=== PATIENT | female | born 1995 | race African-American/Black ===

== ENCOUNTER 2017-02-15 21:43 | Emergency (ER) | payer OTHER ==
[2017-02-15 22:02] VITALS: BMI 39.4
[2017-02-15] MEDS ORDERED: METOCLOPRAMIDE HCL INJECTION 10 MG/2 ML VIAL IVPB ONE (23:24)
[2017-02-15] MEDS ORDERED: SODIUM CHLORIDE 1,000 ML IV ONE (23:24)
[2017-02-15] MEDS ORDERED: ACETAMINOPHEN 1000 MG/100 ML VIAL (NON FORMULARY) IVPB ONE (23:37)
[2017-02-15 23:41] LABS: URINE APPEARANCE CLEAR; URINE BILIRUBIN NEGATIVE (NEGATIVE); URINE BLOOD NEGATIVE (NEGATIVE); URINE COLOR STRAW; URINE GLUCOSE (UA) NEGATIVE (NEGATIVE); URINE KETONE TRACE (NEGATIVE); URINE LEUK ESTERASE NEGATIVE (NEGATIVE); URINE NITRITE NEGATIVE (NEGATIVE); URINE PROTEIN NEGATIVE (NEGATIVE); URINE UROBILINOGEN NEGATIVE mg/dL (0.2-1.0)
[2017-02-15] MEDS ORDERED: METOCLOPRAMIDE HCL INJECTION 10 MG/2 ML VIAL ONE (23:43)
[2017-02-15] MEDS ORDERED: ACETAMINOPHEN INJECTION 100 ML IVPB ONE (23:43)
[2017-02-15 23:51] LABS: BASOPHIL 0.5 % (0-2.0); EOSINOPHIL 7.2 % (0-4.5); MCH 24.9 pg (25.7-33.7); MCHC 33.1 g/dl (32.0-36.0); MEAN CELL VOLUME 75.4 fl (80-96); MEAN PLT VOLUME 7.8 fl (7.5-11.1); NEUTROPHILS 56.8 % (42.8-82.8); PLATELET COUNT 260 K/MM3 (134-434); RDW 13.8 % (11.6-15.6); WHITE BLOOD COUNT 7.8 K/mm3 (4.0-10.0)
--- NOTE | 2017-02-16 00:09 | PDOC ---
History of Present Illness - General History Source: Patient Exam Limitations: No Limitations - History of Present Illness Initial Comments: 02/16/17 00:23 The patient is a 21 year old 20 week female , with no significant past medical history, who presents to the emergency room complaining of of 1 day of a headache and 3 weeks of nasal congestion. When the headache started this morning, the pain was intermittent and was mostly frontal pressure.The headache has progressively worsened becoming a constant frontal headache with intermittent sharp pain to the left side of her head. The headache is exacerbated by bright light. She has had frontal headaches before and states that they have worsened since her . The headache today is 10x worse than any headache she has experienced before. She notes that she was admitted to [facility] on 01/20/17, about 3 weeks ago, for bronchitis. She took a 4 day prescription of Azithromycin and her cough resolved, however the nasal congestion has persisted. Denies ear pain. Denies cough, chest pain, SOB. Denies fever, chills, nausea, vomiting. Denies recent head trauma. Allergies: penicillin, ibuprofen PCP: Dr. Andreea JULIO: Dr. Worrell [[facility] ] <Lucita Early - Last Filed: 02/16/17 01:58> <Pa Lewis - Last Filed: 02/16/17 02:02> - General Chief Complaint: Headache Stated Complaint: HEADACHE Time Seen by Provider: 02/15/17 22:19 Past History <Lucita Early - Last Filed: 02/16/17 01:58> - Past Medical History Anemia: Yes - Reproductive History (#): 1 Para: 0 Cervical CA: No Dysfunctional Uterine Bleeding: No Ectopic : No Endometrial CA: No Polycystic Ovaries: No Therapeutic (s) & number: No Tubal Ligation: No Spontaneous : 0 - Immunization History Immunization Up to Date: Yes - Psycho/Social/Smoking Cessation Hx Anxiety: No Suicidal Ideation: No Smoking History: Never smoked Have you smoked in the past 12 months: No Information on smoking cessation initiated: No Hx Alcohol Use: No Drug/Substance Use Hx: No Substance Use Type: None <Pa Lewis - Last Filed: 02/16/17 02:02> - Past Medical History Allergies/Adverse Reactions: Allergies Allergy/AdvReac Type Severity Reaction Status Date / Time ibuprofen Allergy Verified 02/15/17 22:00 Penicillins Allergy Verified 02/15/17 22:00 Home Medications: Ambulatory Orders Azithromycin [Zithromax 250mg Tablets -] 250 mg PO UTDICT #6 tab 02/16/17 Review of Systems - Review of Systems Constitutional: No: Chills, Fever HEENTM: Yes: Nose Congestion. No: Blurred Vision, Double Vision, Ear Pain, Nose Bleeding, Throat Swelling, Difficulty Swallowing Respiratory: No: Cough, Shortness of Breath Cardiac (ROS): No: Chest Pain, Lightheadedness ABD/GI: No: Diarrhea, Nausea, Vomiting Neurological: Yes: Headache. No: Weakness, Ataxia All Other Systems: Reviewed and Negative <Pa Lewis - Last Filed: 02/16/17 02:02> *Physical Exam - Vital Signs Last Vital Signs Temp Pulse Resp BP Pulse Ox 98.1 F 85 18 132/71 100 02/15/17 22:00 02/15/17 22:00 02/15/17 22:00 02/15/17 22:00 02/15/17 22:00 - Physical Exam Comments: 02/16/17 00:23 GENERAL: The patient is awake, alert, and fully oriented, in no acute distress. HEAD: +Minimal frontal tenderness with no overlying erythema. No mastoid tenderness. No erythema over the mastoid. No signs of trauma. EYES: Pupils equal, round and reactive to light, extraocular movements intact, sclera anicteric, conjunctiva clear. EARS: Tympanic membranes are clear with good light reflex and no fluid. NECK: The neck is supple. No lymphadenopathy. PSYCH: Normal mood, normal affect. SKIN: Warm, Dry, normal turgor, no rashes or lesions noted. NEURO: Mental status: The patient is alert and oriented x3. Cranial nerves: Cranial nerves II through XII are intact Motor: The upper extremities are 5 over 5 in all muscle groups. The lower extremities are 5 over 5 in all muscle groups. No pronator drift. Sensation: Sensation is intact to light touch throughout. Cerebellar: [id number] is normal in both upper extremities. Heel-knee- sánchez is normal in both lower extremities. Reflexes: 2+ and symmetric in the upper and lower extremities. Gait: Normal. Heel and toe walking are normal. Tandem gait is normal. <Lucita Early - Last Filed: 02/16/17 01:58> - Vital Signs Last Vital Signs Temp Pulse Resp BP Pulse Ox 98.1 F 85 18 132/71 100 02/15/17 22:00 02/15/17 22:00 02/15/17 22:00 02/15/17 22:00 02/15/17 22:00 <JoshuaPa - Last Filed: 02/16/17 02:02> ED Treatment Course - LABORATORY CBC & Chemistry Diagram: 02/15/17 23:41 02/15/17 23:41 - ADDITIONAL ORDERS Additional order review: Laboratory Results 02/15/17 02/15/17 23:41 23:34 Sodium 139 Potassium 3.6 Chloride 107 Carbon Dioxide 21 Anion Gap 11 BUN 5 L Creatinine 0.4 L Creat Clearance w eGFR > 60 Random Glucose 74 Calcium 8.5 Total Bilirubin 0.3 AST 19 ALT 25 Alkaline Phosphatase 48 Total Protein 6.8 Albumin 3.3 L Urine Color Straw Urine Appearance Clear Urine pH 6.0 Urine Protein Negative Urine Glucose (UA) Negative Urine Ketones Trace H Urine Blood Negative Urine Nitrite Negative Urine Bilirubin Negative Urine Urobilinogen Negative 02/15/17 23:41 RBC 4.36 MCV 75.4 L MCHC 33.1 RDW 13.8 D MPV 7.8 Neutrophils % 56.8 D Lymphocytes % 29.4 D Monocytes % 6.1 Eosinophils % 7.2 H D Basophils % 0.5 - RADIOLOGY Radiograph Interpretation: 02/16/17 01:58 EXAM: Ultrasound obstetric IMAGES: 40 INDICATION: well being DATE OF SERVICE: 2017-02-16 01:27:55 COMPARISON: none FINDINGS: Live IUP in breech position with estimated age 20 weeks and 5 days. Cervix is closed and measures 3.8 cm in length. There is an anterior placenta which is low lying but does not cover the internal os, consistent with a marginal previa. No evidence of abruption. Normal heart rate of 142 beats per minute. There is a amount of amniotic fluid for age. IMPRESSION: Breech position. Marginal placenta previa. - Medications Given in the ED: ED Medications Discontinued Medications Generic Name Dose Route Start Last Admin Trade Name Freq PRN Reason Stop Dose Admin Acetaminophen 1,000 mg 02/15/17 23:37 02/15/17 23:50 Ofirmev Injection - IVPB 02/15/17 23:38 1,000 mg ONCE ONE Administration Sodium Chloride 1,000 mls @ 1,000 mls/hr 02/15/17 23:24 02/15/17 23:49 Normal Saline - IV 02/16/17 00:23 1,000 mls/hr ONCE ONE Administration Metoclopramide HCl 10 mg 02/15/17 23:24 02/15/17 23:49 Reglan Injection - IVPB 02/15/17 23:25 10 mg ONCE ONE Administration <Lucita Early - Last Filed: 02/16/17 01:58> - LABORATORY CBC & Chemistry Diagram: 02/15/17 23:41 02/15/17 23:41 - ADDITIONAL ORDERS Additional order review: Laboratory Results 02/15/17 23:34 Urine Color Straw Urine Appearance Clear Urine pH 6.0 Urine Protein Negative Urine Glucose (UA) Negative Urine Ketones Trace H Urine Blood Negative Urine Nitrite Negative Urine Bilirubin Negative Urine Urobilinogen Negative 02/15/17 23:41 RBC 4.36 MCV 75.4 L MCHC 33.1 RDW 13.8 D MPV 7.8 Neutrophils % 56.8 D Lymphocytes % 29.4 D Monocytes % 6.1 Eosinophils % 7.2 H D Basophils % 0.5 - Medications Given in the ED: ED Medications Discontinued Medications Generic Name Dose Route Start Last Admin Trade Name Freq PRN Reason Stop Dose Admin Acetaminophen 1,000 mg 02/15/17 23:37 02/15/17 23:50 Ofirmev Injection - IVPB 02/15/17 23:38 1,000 mg ONCE ONE Administration Metoclopramide HCl 10 mg 02/15/17 23:24 02/15/17 23:49 Reglan Injection - IVPB 02/15/17 23:25 10 mg ONCE ONE Administration <Pa Lewis - Last Filed: 02/16/17 02:02> Medical Decision Making - Medical Decision Making 02/16/17 00:05 A portion of this note was documented by scribe services under my direction. I have reviewed the details of the note, within reason, and agree with the documentation with the following case summary and management plan written by me. Healthy 21-year-old female G1 LMP about 20 weeks presents with headache since this morning. Patient has been having uneventful , has history of occasional headaches that are frontal but self resolving, over the last 3 weeks has been battling URI symptoms with nasal congestion and initially cough. She was treated with azithromycin with resolution of the cough the persistence of her nasal congestion, and this morning awoke with her typical frontal headache but more severe, which over the course of the day became left-sided and radiating occipitally, associated with some photophobia but no fevers or chills/ vision change/speech change/focal weakness/nausea/vomiting/gait disturbance. Did not take anything for pain, attempted to go to a different emergency room and then urgent care, now presents here for evaluation and management. Afebrile, vital signs notable for blood pressure of 130/70. Well-appearing seated in stretcher, obese and gravid Positive nasal congestion, airway otherwise patent and speaking full sentences TMs are clear, positive left frontal sinus tenderness to palpation without overlying swelling or erythema, no mastoid tenderness, neck is supple without lymphadenopathy Heart lungs are clear Abdomen is gravid but nontender Neurological exam is normal Healthy 21-year-old female with left frontal headache, and the setting of URI and worsening nasal congestion with focal reproducible tenderness, this seems most consistent with frontal sinusitis. Neurologically intact, no evidence of other deeper infectious process such as meningitis. Despite , atypical for venous thrombosis. Patient's blood pressure is borderline for second trimester, will rule out preeclampsia. Check labs and urinalysis Trial of IV fluids, Tylenol, Reglan Will need L+D evaluation/monitoring reassess 02/16/17 00:28 labs wnl. no anemia, normal LFTs, UA clear without protein. receiving meds, will reassess and have L+D evaluate. 02/16/17 01:22 Feels much better after medications, blood pressure now 109/60. Exact LMP unclear, followed by [facility]. Discussed with L&D to assess for monitoring, will need gestational age confirmation with ultrasound before being transferred upstairs. HCG notably 6050. Will give first dose of antibiotic here, given penicillin ALLERGY we'll repeat azithromycin course. 02/16/17 02:01 U/S confirms 20wks 5 days. Discussed again with L+D, will d/c from ED to monitoring. Abx sent to pharmacy. <Pa Lewis - Last Filed: 02/16/17 02:02> *DC/Admit/Observation/Transfer - Attestations Scribe Attestion: 02/16/17 00:24 Documentation prepared by KIKI Bojorquez, acting as medical dir for Pa Lewis MD. <Lucita Early - Last Filed: 02/16/17 01:58> <Pa Lewis - Last Filed: 02/16/17 02:02> Diagnosis at time of Disposition: Sinus headache, Second trimester - Discharge Dispostion Condition at time of disposition: Fair - Prescriptions Prescriptions: Azithromycin [Zithromax 250mg Tablets -] 250 mg PO UTDICT #6 tab - Referrals Referrals: Jodi Doran MD [Primary Care Provider] - Blue Worrell [Non Staff, Medical] - - Patient Instructions Printed Discharge Instructions: DI for Sinus Headache Additional Instructions: Activity as tolerated. Stay hydrated. Tylenol 1000 mg every 8 hours as needed for pain. Blood tests and a urine test performed today showed no abnormalities. Your blood pressure was initially 130/70 but then improved to 109/60. Your symptoms are likely due to a sinusitis that also prompted a headache. Take azithromycin as prescribed as antibiotic for the sinusitis. Saline sprays as decongestant. Continue your medications as previously prescribed by your physician. You should follow up with your [employer] as soon as possible regarding today's emergency department visit. Instructions as per Labor and Delivery, where you will go immediately following this visit. Return to the emergency department for any new or concerning symptoms, particularly persistent or worsening headache, fevers or chills, vision changes or vomiting, abdominal pain or cramping or bleeding.
[2017-02-16 00:15] LABS: ALBUMIN 3.3 g/dl (3.4-5.0); ANION GAP 11 (8-16); BILIRUBIN,TOTAL 0.3 mg/dL (0.2-1.0); CALCIUM 8.5 mg/dL (8.5-10.1); CO2 21 mmol/L (21-32); CREATININE 0.4 mg/dL (0.55-1.02); GLUCOSE,RANDOM 74 mg/dL (74-106); SGOT/AST 19 U/L (15-37); SGPT/ALT 25 U/L (12-78); TOT PROT 6.8 g/dl (6.4-8.2)
[2017-02-16 00:16] LABS: ALK PHOS 48 U/L (45-117)
[2017-02-16] MEDS ORDERED: AZITHROMYCIN 500 MG TABLET PO ONE (01:19)
[2017-02-16 03:02] VITALS: BP 108/53; PULSE 70; TEMP 97.8
== END 2017-02-16 03:13 | disposition home or self-care (01) ==
LOC: JER 21:43
PROC: 3E033NZ Introduction of Analgesics, Hypnotics, Sedatives into Peripheral Vein, Percutaneous Approach (ICD-10-PCS; principal; 2017-02-15)
PROC: 3E033GC Introduction of Other Therapeutic Substance into Peripheral Vein, Percutaneous Approach (ICD-10-PCS; 2017-02-15)
DX: O99.89 Other specified diseases and conditions complicating pregnancy, childbirth and the puerperium (principal); J32.1 Chronic frontal sinusitis; Z3A.20 20 weeks gestation of pregnancy
CPT/HCPCS: 36415; 76815-TC; 80053; 81003; 84702; 85025; 99281-25